=== PATIENT | male | born 1990 | race Caucasian/White ===

== ENCOUNTER 2019-04-17 22:47 | Emergency (ER) | payer SELFPAY ==
[~2019-04-17] VITALS: Ht 177.8 cm; Wt 83.9 kg
[2019-04-17 23:10] VITALS: BP 129/67
--- NOTE | 2019-04-17 23:10 | NUR ---
TO BED # 1 AMBULATORY
--- NOTE | 2019-04-17 23:31 | NUR ---
PT C/O LT HAND AND ARM SWELLING S/P TRYING TO INJECT COCAINE INTO HIS VEINS X4 DAYS AGO. PT STATES HE USED A CLEAN NEEDLE EACH TIME HE TRIED TO INJECT. SWELLING AND REDNESS NOTED TO THE LT HAND, ARM, AND WRIST. CAP REFILL <3 SECONDS. PT STATES HE IS UNABLE TO OPEN HAND. + SENSORY IN BILATERAL UPPER EXTREMITIES. PT SITTING IN BED, CALM AND PLEASANT. VSS AT THIS TIME. MEDHX: DENIES ALLERGIES: PENICILLIN
--- NOTE | 2019-04-18 00:25 | NUR ---
PT AMBULATED TO RESTROOM
[2019-04-18] MEDS ORDERED: CLINDAMYCIN 600 MG/4 ML VIAL IM ONE (00:35)
[2019-04-18] MEDS ORDERED: KETOROLAC 30 MG/ML VIAL IM ONE (00:35)
--- NOTE | 2019-04-18 01:00 | NUR ---
EMT PLACING SPINT AT THIS TIME
[2019-04-18 01:07] VITALS: BP 129/67
--- NOTE | 2019-04-18 01:08 | NUR ---
Patient discharged with v/s stable. Written and verbal after care instructions given and explained. Patient alert, oriented and verbalized understanding of instructions. Ambulatory with to home. All questions addressed prior to discharge. ID band removed. Patient advised to follow up with PMD. Rx of NAPROSYN AND CLINDAMYCIN given. Patient educated on indication of medication including possible reaction and side effects. Opportunity to ask questions provided and answered.
== END 2019-04-18 01:08 | disposition home or self-care (01) ==
LOC: MED 22:47
DX: L03.114 Cellulitis of left upper limb (principal); Z88.0 Allergy status to penicillin
CPT/HCPCS: 29125; 73130; 96372; 99283; J1885; J3490